=== PATIENT | female | born 1975 | race Caucasian/White ===

== ENCOUNTER 2017-10-02 13:26 | Emergency (ER) | payer BC | END 2017-10-02 15:24 | disposition home or self-care (01) | LOC: FTE 13:26 | DX: F41.9 Anxiety disorder, unspecified (principal) | CPT/HCPCS: 93005; 99283 ==

== ENCOUNTER 2018-09-03 21:39 | Emergency (ER) | payer BC ==
[2018-09-03] MEDS: LORAZEPAM 1 MG TAB PO (22:49)
== END 2018-09-04 00:04 | disposition home or self-care (01) ==
LOC: E/R 09-04 00:04
DX: F41.1 Generalized anxiety disorder (principal); F43.20 Adjustment disorder, unspecified
CPT/HCPCS: 99283-25; Z7502